=== PATIENT | male | born 1980 | race Two or more races ===

== ENCOUNTER 2024-10-30 09:12 | Emergency (ER) | payer OTHER ==
[~2024-10-30] VITALS: Ht 180.3 cm; Wt 90.7 kg
[2024-10-30] MEDS ORDERED: KETOROLAC TROMETHAMINE 60 MG VIAL IM STA (10:44)
[2024-10-30] MEDS ORDERED: CEFTRIAXONE SODIUM 1,000 MG VIAL IM STA (10:45)
[2024-10-30] MEDS ORDERED: KETOROLAC TROMETHAMINE 60 MG VIAL IM ONE (10:49)
[2024-10-30] MEDS ORDERED: CEFTRIAXONE SODIUM 1,000 MG VIAL ONE (10:49)
== END 2024-10-30 11:43 | disposition home or self-care (01) ==
LOC: ER 09:23
DX: K01.1 Impacted teeth (principal)